=== PATIENT | female | born 1975 | race Caucasian/White ===

== ENCOUNTER → 2020-12-28 17:39 | Outpatient (CLI) | payer OTHER, SELFPAY ==
--- NOTE | ~2020-12-28 | MM_ITS ---
EXAMINATION: MM screening allen BI w clarita HISTORY: Screening mammogram TECHNIQUE: Craniocaudal and mediolateral oblique 3-D tomosynthesis images were obtained and synthetic 2-D images were generated.. Rotated lateral craniocaudal views. CAD analysis was submitted and inter preted. COMPARISON: 12/08/2017 diagnostic right mammogram and limited right breast ultrasound 11/07/2017, 08/04/2015 bilateral screening mammogram examinations BREAST PARENCHYMAL COMPOSITION: The breasts are heterogeneously dense, which may obscure small masses . FINDINGS: There is no evidence of suspicious mass, calcification, or architectural distortion to sugg est malignancy in either breast. There has been no suspicious interval change. IMPRESSION: 1. No mammographic evidence of malignancy. 2. Recommend routine screening mammography in one year. BI-RADS Category 1: Negative Reviewed, dictated and finalized at location A. MECHANIC
== END ==
PROVIDERS: Visit Provider Obstetrics & Gynecology
DX: Z12.31 Encounter for screening mammogram for malignant neoplasm of breast (principal)
CPT/HCPCS: 77063; 77067

== ENCOUNTER → 2022-01-20 13:25 | Outpatient (CLI) | payer OTHER, SELFPAY ==
--- NOTE | ~2022-01-20 | MM_ITS ---
EXAMINATION: MM screening allen BI w clarita HISTORY: Screening mammogram TECHNIQUE: Craniocaudal and mediolateral oblique 3-D tomosynthesis images were obtained and synthetic 2-D images were generated. Bilateral rotated lateral CC views. CAD analysis was submitted and interp reted. COMPARISON: 12/28/2020 bilateral screening mammogram 11/21/2017 bilateral diagnostic mammography and limited right breast ultrasound examination 08/04/2015 bilateral screening mammogram BREAST PARENCHYMAL COMPOSITION: The breasts are heterogeneously dense, which may obscure small masses . FINDINGS: There is no evidence of suspicious mass, calcification, or architectural distortion to sugg est malignancy in either breast. There has been no suspicious interval change. IMPRESSION: 1. No mammographic evidence of malignancy. 2. Recommend routine screening mammography in one year. BI-RADS Category 1: Negative Reviewed, dictated and finalized at location A. K ATTENDANT
== END ==
PROVIDERS: PCP Family Medicine; Visit Provider Obstetrics & Gynecology
DX: Z12.31 Encounter for screening mammogram for malignant neoplasm of breast (principal)
CPT/HCPCS: 77063; 77067

== ENCOUNTER → 2022-09-14 15:33 | Outpatient (CLI) | payer OTHER, SELFPAY ==
--- NOTE | ~2022-09-14 | MR_ITS ---
MRI of the left knee Clinical history: Pain Technique: Coronal proton density and proton density-weighted images, sagittal proton-density and T2 fat-sat images, and axial proton-density fat-saturated images were acquired. Findings: The anterior and posterior cruciate ligaments are intact. Medial collateral ligament and th e lateral collateral ligament complex are intact. Popliteus tendon is intact. No lateral meniscal tear seen. There is prominent horizontal tear of the posterior horn and body of t he medial meniscus. There is a probable very small, 3 mm parameniscal cyst developing (sagittal image 7, coronal image 17). Articular cartilage is well preserved throughout the knee. Bone marrow signals are unremarkable. Extensor mechanism is intact. No joint effusion. No Rivera's cyst. Impression: Horizontal tear of the posterior horn and body of the medial meniscus with probable associated 3 mm p arameniscal cyst. Reviewed, dictated and finalized at [facility]. Impression: Horizontal tear of the posterior horn and body of the medial meniscus with prob able associated 3 mm parameniscal cyst.
== END ==
PROVIDERS: PCP Family Medicine
DX: S83.242A Other tear of medial meniscus, current injury, left knee, initial encounter (principal); M25.562 Pain in left knee; M25.30 Other instability, unspecified joint
CPT/HCPCS: 73721

== ENCOUNTER 2022-12-20 00:30 | Day surgery (SDC) | payer OTHER, SELFPAY ==
[2022-12-12 10:07] VITALS: BMI 20.1
--- NOTE | 2022-12-12 10:14 | PC.NURSE ---
Report to the Outpatient Waiting Room, entrance under the green pavilion located off [facility], at time 11:30AM on date 12-20-22. Planned Procedure Time: 1:30PM. Time changes happen often and if your time is changed the preop area will call you the afternoon before. - You and your visitor will be asked to self-screen and do not enter if you have any COVID symptoms. - A mask is optional within the hospital at this time. Patients may have clear liquids (water, carbonated beverages, clear teas, apple juice) until 3 hours prior to surgery (10:30AM) with a maximum of 20 ounces. - No food from midnight until time of surgery Take the following medications with a SIP of water the morning of surgery: CONTROL DO NOT STOP ANY OF YOUR OTHER PRESCRIPTION MEDICATIONS PRIOR TO SURGERY ?EXCEPT THE FOLLOWING Medications to discontinue per physician N/A Date to take last dose N/A Please no make-up, nail georgian, hairspray, perfume, deodorant, or body powder the day of surgery. No jewelry (including any body piercings) or valuables the day of surgery, leave them at home. Please take a shower or bath the night before, or the morning of, surgery with an antibacterial soap. Wear comfortable, loose fitting clothing. - Jewelry must be removed prior to entering the operating room. Rings and piercings that are not removed may be cut off. - The hospital will not accept responsibility for valuables. - Please leave all valuables, including medications, at home the day of surgery. If you are going home after surgery, a licensed delivery motorcycle driver must drive you home. - NO public transportation without another adult if you receive anesthesia. - We recommend that an adult stay with you for 24 hours following discharge. - We also recommend that you do not drive, make important decision, drink alcoholic beverages, or take any drugs that were not prescribed by your health care provider for at least 24 hours after your discharge time. Follow any additional instructions given to you from your surgeon. If you or anyone in your household have experienced Covid symptoms in the past week, please notify your surgeon or the nurse liaison at the phone number below for possible testing. Telephone instructions given to PATIENT and asked if any additional questions and then verbalized understanding. Patient advised to call surgeon office or pre surgery nurse liaison [phone] if any additional questions.
[2022-12-20] VITALS (9 sets, daily range): BP systolic 108–131; BP diastolic 65–76; PULSE 59–81; RESP 10–18; TEMP 36.6–36.9; O2SAT 94–100
--- NOTE | 2022-12-20 07:12 | WPDHPUPDATE1 ---
History and Physical Update Update Date/Time: 12/20/22 07:12 History and Physical has been reviewed, including an updated exam of the patient. There are NO changes in the patient's condition. Risks, benefits, and alternatives have been discussed and questions answered. Patient agrees to proceed with procedure.
[2022-12-20] MEDS: LACTATED RINGERS 1,000 ML 30 ML IV CONT ×2 (12:00→15:10)
[2022-12-20] MEDS: ACETAMINOPHEN 500 MG TABLET 1000 MG PO (12:22)
[2022-12-20] MEDS: CELECOXIB 200 MG CAPSULE PO (12:23)
--- NOTE | 2022-12-20 13:23 | WPDANESEPPF ---
Anes - Initial Pre Proc Eval Procedure: Operation Date: 12/20/22 13:30 Proposed Procedures p Left Knee Arthroscopy - Darell Ellis MD Date/Time: 12/20/22 13:23 Surgeon: Darell Ellis MD Pre Op Diagnosis: Lt Knee Medial Meniscus tear Patient Data Age: 47 Gender: F Height: 1.65 m Weight: 55 kg Last Vital Signs Temp 36.9 C 12/20/22 11:31 Pulse 80 12/20/22 11:31 Resp 18 12/20/22 11:31 BP 131/69 12/20/22 11:31 Pulse Ox 100 12/20/22 11:31 O2 Del Method Room Air 12/20/22 11:31 Allergies Allergy/AdvReac Type Severity Reaction Status Date / Time Penicillins Allergy Mild Confusion Verified 12/20/22 12:40 Home Medications Medication Instructions Recorded Confirmed Type control 1 tab-cap BYMOUTH DAILY 11/16/22 12/20/22 History Patient hx anesthesia problems: none Family hx anesthesia problems: none Results Review: All pre-operative results and documents have been reviewed as part of the pre-operative evaluation. [facility] Surgical History Surgical History History of carpal tunnel release of both wrists 2005 Social History Social History Years smoked: 5 Smoking status: Former smoker Second hand tobacco smoke exposure: No Alcohol intake: never Drinks per week: 1 Substance use: never Substance use type: does not use Living arrangements: with family Occupation/Education: occupation Additional occupation/education comments: Operations Admin [employer] Gender identity (if verbalized by the patient): Female Spiritual care concerns: No Anes - Eval Final PreProcedure Day of Procedure 12/20/22 13:23 Patient weight: normal Heart: regular rate and rhythm Lungs: clear to auscultation Airway: Mallampati scale class II Neurological: alert and oriented Last oral intake: >/= 8 hours ASA classification: II Emergent: no Anesthetic plan: proceed Anesthesia type and monitoring: general LMA and standard monitoring Results Review: All pre-operative results and documents have been reviewed as part of the pre-operative evaluation. Informed Consent: The patient's anesthetic plan and its attendant risks and benefits were discussed with the patient/family/POA. Questions were solicited and answers provided to the satisfaction of the patient/family/POA.
[2022-12-20] MEDS: ceFAZolin 2 GM/D5W 50 ML 2 GM/50 ML BAG IVPB (14:05)
[2022-12-20] MEDS: BUPivacaine HCL 0.5% 10 ML AMP 30 ML INFILTRATE (14:40)
--- NOTE | 2022-12-20 15:19 | W.PM.PROC2 ---
Procedure Note - Detailed Date of Procedure 12/20/22 Pre-op Diagnosis Lt Knee Medial Meniscus tear Post-op Diagnosis Same Procedure Performed LEFT KNEE SCOPE Surgeon Darell Ellis MD Anesthesia General Description of Procedure PATIENT WAS TAKEN TO THE OR. LEFT LEG WAS PREPPED AND DRAPED STERILE. TROCARS WERE PLACED IN THE USUAL FASHION. CAMERA WAS INTRODUCED. THERE WAS MINIMAL CHONDROMALACIA TO THE PATELLA FEMORAL JOINT. THERE WAS MODERATE SYNOVITIS IN ALL COMPARTMENTS. THE MEDIAL COMPARTMENT SHOWED MILD CHONDROMALACIA TO THE MEDIAL FEMORAL CONDYLE. A SHAVER WAS USED TO PREFORM A CHONDROPLASTY. THERE WAS A COMPLEX MEDIAL MENISCUS TEAR. THE TEAR WAS RESECTED WITH A BITER AND A SHAVER DOWN TO A SMOOTH BASE. ABOUT 15% TO 20% OF THE MENISCUS WAS REMOVED. THE ACL WAS INTACT. THE LATERAL MENISCUS WAS NOT TORN. THE LATERAL COMPARTMENT HAD NO CHONDROMALACIA. THE PATELLO FEMORAL JOINT UNDERWENT MINIMAL CHONDROPLASTY. SYNOVECTOMY WAS PREFORMED IN THE SUPERIOR MEDIAL COMPARTMENT. THE WOUNDS WERE APPROXIMATED WITH 4.0 NYLON. STERILE DRESSING WAS APPLIED. PATIENT WAS EXTUBATED. Estimated Blood Loss -5.0 Complications No immediate complications Condition Stable Disposition PACU
[2022-12-20] MEDS: fentaNYL CITRATE INJ (*CRX) 100 MCG/2 ML VIAL 25 MCG IV PUSH ×5 (15:25→15:52)
[2022-12-20] MEDS: oxyCODONE HCL (*CRX) 5 MG TAB IR PO (16:37)
== END 2022-12-20 17:28 | disposition home or self-care (01) ==
PROVIDERS: PCP Family Medicine; Visit Provider Orthopaedic Surgery
PROC: (CPT 29870; principal; 2022-12-20 13:30)
DX: M23.332 Other meniscus derangements, other medial meniscus, left knee (principal); M65.862 Other synovitis and tenosynovitis, left lower leg; Z87.891 Personal history of nicotine dependence
CPT/HCPCS: 29881; A9270; J0690; J1100; J2250; J2371; J2405; J2704; J3010; J7120

== ENCOUNTER 2024-04-23 12:20 | Outpatient (CLI) | payer OTHER, SELFPAY ==
--- NOTE | ~2024-04-23 | MM_ITS ---
EXAMINATION: MM screening allen BI w clarita HISTORY: Screening mammogram TECHNIQUE: Craniocaudal and mediolateral oblique 3-D tomosynthesis images were obtained and synthetic 2-D images were generated. CAD analysis was submitted and interpreted. COMPARISON: 01/20/2022, 12/28/2020 BREAST PARENCHYMAL COMPOSITION:Dense: The breasts are extremely dense, which lowers the sensitivity o f mammography. FINDINGS: No suspicious mass, calcification, or architectural distortion are identified in either ghassan ast to suggest malignancy. There has been no suspicious interval change. IMPRESSION: No mammographic evidence of malignancy. Recommend routine screening mammography in one year. BI-RADS Category 1: Negative Reviewed, dictated and finalized at location M. TAL GROWING TECHNICIAN
== END 2024-04-23 12:21 | disposition home or self-care (01) ==
PROVIDERS: PCP Family Medicine; Visit Provider Obstetrics & Gynecology
DX: Z12.31 Encounter for screening mammogram for malignant neoplasm of breast (principal)
CPT/HCPCS: 77063; 77067

== ENCOUNTER 2024-05-09 15:49 | Outpatient (CLI) | payer OTHER, SELFPAY ==
--- NOTE | ~2024-05-09 | MR_ITS ---
EXAMINATION: MR lumbar spine wo con DATE: 05/09/2024 16:15 INDICATION: Low back pain TECHNIQUE: Magnetic resonance imaging (MRI) of the lumbar spine was performed without intravenous con trast. Sequences included sagittal T2-weighted FSE, sagittal T2-weighted FS FSE, sagittal T1-weighted FSE, and axial T2-weighted FSE. COMPARISON: 03/01/2018 FINDINGS: Negligible lumbar levocurvature. Sagittal alignment is normal. Transitional thoracolumbar and lumbosa cral segments with hypoplastic riblets at what for purposes of this report will be designated T12, sa cralized L5 segment and 4 intervening nonrib-bearing lumbar segments. Vertebral body heights are norm al. Normal marrow signal. Unchanged mild disc height loss at L3-L4. The conus medullaris terminates at T12-L1. There is normal signal in the caudal spinal cord. Paravertebral soft tissues are unremarka ble. The following disc levels are specifically discussed: T11-T12: The disc does not extend beyond the endplate margin. There is mild bilateral facet joint ost eoarthritis. There is no neural foraminal stenosis. There is no central canal stenosis. T12-L1: The disc does not extend beyond the endplate margin. There is minimal bilateral facet joint o steoarthritis. There is no neural foraminal stenosis. There is no central canal stenosis. L1-L2: The disc does not extend beyond the endplate margin. There is minimal bilateral facet joint os teoarthritis. There is no neural foraminal stenosis. There is no central canal stenosis. L2-L3: Disc is mildly bulging. There is mild bilateral facet joint osteoarthritis. There is mild bila teral neural foraminal stenosis. There is minimal central canal stenosis. L3-L4: Disc is bulging. There is mild left and moderate right facet joint osteoarthritis. There is mi ld bilateral neural foraminal stenosis. There is mild central canal stenosis. L4-L5: The disc does not extend beyond the endplate margin. There is mild left and moderate right fac et joint osteoarthritis. There is no neural foraminal stenosis. There is no central canal stenosis. L5-S1: The disc does not extend beyond the endplate margin. There is no facet joint osteoarthritis. T here is no neural foraminal stenosis. There is no central canal stenosis. IMPRESSION: 1. No interval change in mild lumbar spondylosis. Reviewed, dictated and finalized at location B.
== END 2024-05-09 15:50 | disposition home or self-care (01) ==
LOC: MICIMG 15:50
PROVIDERS: PCP Family Medicine
DX: M47.816 Spondylosis without myelopathy or radiculopathy, lumbar region (principal)
CPT/HCPCS: 72148